=== PATIENT | male | born 1990 | race African-American/Black ===

== ENCOUNTER 2017-06-17 22:53 | Emergency (ER) | payer OTHER ==
[~2017-06-17] VITALS: Ht 177.8 cm; Wt 77.0 kg
[2017-06-18] MEDS ORDERED: SODIUM CHLORIDE 0.9% 1,000 ML IV ONE (01:06)
[2017-06-18 01:21] LABS: BASOPHILS % 0.2 % (0.0-2.0); HEMATOCRIT. 27.9 % (42.0-52.0); HEMOGLOBIN. 9.3 g/dL (14.0-18.0); LYMPHOCYTES % 14.8 % (20.0-50.0); MEAN CORPUSCULAR HEMOGLOBIN 26.9 pg (28.0-32.0); MEAN CORPUSCULAR VOLUME 80.8 fL (80.0-94.0); MEAN PLATELET VOLUME 8.2 fl (7.4-10.4); MONOCYTES % 11.3 % (2.0-8.0); NEUTROPHILS % 73.7 % (40.0-76.0); PLATELET 157 x1000/uL (130-400); RED BLOOD CELL COUNT 3.46 mill/uL (4.7-6.1); RED CELL DISTRIBUTION WIDTH 15.9 % (11.6-14.6)
[2017-06-18 01:27] LABS: CHLORIDE 104 mEq/L (98-107)
[2017-06-18 01:36] LABS: CARBON DIOXIDE 25 mEq/L (21-32)
[2017-06-18 01:57] LABS: *AMPHETAMINES SCREEN URINE PRESUMTIVE POSITIVE (NEGATIVE); *BARBITURATES SCREEN URINE NEGATIVE (NEGATIVE); *BENZODIAZEPINES SCREEN URINE NEGATIVE (NEGATIVE); *COCAINE SCREEN URINE NEGATIVE (NEGATIVE); CANNABINOID URINE SCREEN PRESUMTIVE POSITIVE (NEGATIVE); METHADONE URINE SCREEN NEGATIVE (NEGATIVE); OPIATES URINE SCREEN NEGATIVE (NEGATIVE); PHENCYCLIDINE URINE SCREEN NEGATIVE (NEGATIVE)
[2017-06-18] MEDS ORDERED: PANTOPRAZOLE SODIUM 40 MG/VIAL IV ONE (02:45)
[2017-06-18 05:41] VITALS: BP 130/69
== END 2017-06-18 05:49 | disposition home or self-care (01) ==
LOC: ER 23:29
DX: F15.10 Other stimulant abuse, uncomplicated (principal); F12.10 Cannabis abuse, uncomplicated; K92.2 Gastrointestinal hemorrhage, unspecified; R00.0 Tachycardia, unspecified; F17.210 Nicotine dependence, cigarettes, uncomplicated; D64.9 Anemia, unspecified; R19.5 Other fecal abnormalities; Z88.0 Allergy status to penicillin
CPT/HCPCS: 36415; 80053; 80305; 85025; 93005; 96361; 96374; 99285; C9113; J7030; Z7610